=== PATIENT | male | born 1960 | race Caucasian/White ===

== ENCOUNTER → 2017-03-26 | Day surgery (SDC) | payer MEDICARE ==
[~2017-03-26] MED LIST: ACET325T9 PO; IV RINGERS,LACTATED 1000ML 1,000 ML IV SCH; PANT40TA5 PO; POLY17PO29 PO; PROPOFOL 20 ML IV ONE; fentaNYL PF VIAL 100 MCG/2 ML VIAL IV PRN
[2017-03-26 16:52] VITALS: BP 136/79
--- NOTE | 2017-03-28 11:02 | PATHOLOGY ---
PATHOLOGY REPORT * * * * * * * * FINAL DIAGNOSIS: A. Colon biopsies, hepatic flexure polyp: - Tubular adenoma. B. Colon biopsies, cecal polyp: - Tubular adenoma. C. Colorectal biopsies, rectal polyp: - Hyperplastic polyp. COMMENT: There is no high grade dysplasia or evidence of malignancy. (JPM:mml; 03/28/2017) REPORT ELECTRONICALLY SIGNED BY: Josh Aguirre M.D. DATE/TIME: 03/28/2017 11:02 * * * * * * * * GROSS PATHOLOGY: A. Received in formalin labeled "Moises Aranda, hepatic flexure polyp," are three segments of lezama soft tissue measuring from 0.1 up to 0.3 cm in maximum dimension. The specimen is submitted entirely in cassette A1. B. Received in formalin labeled "cecal polyp," are three segments of lezama soft tissue measuring 0.1, 0.1 and 0.2 cm in maximum dimension. The specimen is submitted entirely in cassette B1. C. Received in formalin labeled "rectal polyp," are two segments of lezama soft tissue measuring 0.2 and 0.4 cm in maximum dimension. The specimen is submitted entirely in cassette C1. (JPM; 03/27/17) INITIAL CPT CODE(S): A; 52119 B; 52609 C; 99614 Professional services performed by [facility] [place] [address] Technical services performed by [facility] at [address] [place] [address] [address], [place] [address]. SPECIMEN(S) RECEIVED: A.Hepatic flexure polyp B.Cecal polyp C.Rectal polyp CLINICAL HISTORY: Constipation, epigastric pain PATIENT: MOISES ARANDA Corin /AGE: 803/11/1960 (Age: 57) PATIENT #: [id number] ALT CASE #: SPECIMEN COLLECTION DATE: 03/26/2017 SPECIMEN RECEIVED DATE: 03/27/2017 [facility] - [address] [place] [address] - PHONE: [phone] * * * END OF REPORT * * *
== END | disposition home or self-care (01) ==
LOC: SURG 14:55
PROVIDERS: ATTEND Internal Medicine Gastroenterology
DX: D12.0 Benign neoplasm of cecum (principal); D12.3 Benign neoplasm of transverse colon; K64.1 Second degree hemorrhoids; K57.30 Diverticulosis of large intestine without perforation or abscess without bleeding; K29.50 Unspecified chronic gastritis without bleeding; F17.200 Nicotine dependence, unspecified, uncomplicated
CPT/HCPCS: 43235; 45380; J2704

== ENCOUNTER → 2017-03-29 | Outpatient (CLI) | payer MEDICARE ==
[2017-03-26 16:52] VITALS: BP 136/79
[~2017-03-29] MED LIST changes: +IOHEXOL 240 MG/ML 50ML VIAL. PO ONE; +IOHEXOL 300 MG/ML 75 ML VIAL IV ONE; -IV RINGERS,LACTATED 1000ML 1,000 ML IV SCH; -PROPOFOL 20 ML IV ONE; -fentaNYL PF VIAL 100 MCG/2 ML VIAL IV PRN
--- NOTE | 2017-03-29 10:35 | RAD ---
Exam performed: CT scan of the abdomen and pelvis with contrast Clinical Indication:Epigastric abdominal pain for one year Date of Service:03/29/17 comparison: CT abdomen pelvis from 01/13/13 Technique: Contiguous helical acquisitions are obtained from the lung bases to the pelvis during intravenous administration of [75 cc of Omnipaque 300]. In addition oral contrast was also given. Sagittal and coronal reformatted images were obtained and reviewed. CT abdomen findings: The lung bases appear essentially clear. The visualized heart is normal. Diffuse hepatic steatosis without focal lesions. The spleen and pancreas appears unremarkable. Probable cholelithiasis. Both adrenal glands and bilateral kidneys appear normal with symmetric excretion of contrast via both kidneys. Left renal cysts. The small bowel loops appear nondilated and unremarkable. Atheromatous aortic calcification. There is no retroperitoneal lymphadenopathy or mass lesions. No bowel related inflammatory stranding is noted. Appendix is normal. No obvious stranding is seen in the pericecal region. CT pelvis findings: The pelvic bowel loops are nondilated and unremarkable. Sigmoid diverticulosis without acute diverticulitis The urinary bladder is well distended and normal . Interrogation of bone windows demonstrates no obvious bony abnormality. Sagittal and coronal reformatted images were obtained and reviewed which demonstrate no additional findings. Impression abdomen and pelvis : 1. No acute intra-abdominal or pelvic process is detected. 2. Probable cholelithiasis. Evaluation with right upper quadrant ultrasound may be obtained. 3. Sigmoid diverticulosis without acute diverticulitis PQRS Compliance Statement: One or more of the following individualized dose reduction techniques were utilized for this examination: 1. Automated exposure control 2. Adjustment of the mA and/or kV according to patient size 3. Use of iterative reconstruction technique
== END | disposition home or self-care (01) ==
LOC: CT 08:05
PROVIDERS: ATTEND Internal Medicine Gastroenterology
DX: K57.30 Diverticulosis of large intestine without perforation or abscess without bleeding (principal)
CPT/HCPCS: 74177; Q9966; Q9967

== ENCOUNTER → 2017-04-11 | Outpatient (CLI) | payer MEDICARE ==
[2017-03-26 16:52] VITALS: BP 136/79
[~2017-04-11] MED LIST changes: -IOHEXOL 240 MG/ML 50ML VIAL. PO ONE; -IOHEXOL 300 MG/ML 75 ML VIAL IV ONE
--- NOTE | 2017-04-11 08:17 | RAD ---
Indication epigastric pain. Grayscale images were obtained. The examination was targeted to the right upper quadrant. Note is made of a CT examination of the abdomen and pelvis 03/29/2017. There is increased attenuation of the ultrasound beam by the liver compatible with fatty infiltration. A focal mass lesion is not seen in the visualized liver. The pancreas is poorly visualized and largely obscured. That portion of the abdominal aorta and inferior vena cava which are seen appears normal. The right kidney appears unremarkable. The gallbladder is partially contracted. There is cholelithiasis. The common bile duct diameter of approximately 5 mm is normal. IMPRESSION: Cholelithiasis. Fatty infiltration of the left
== END | disposition home or self-care (01) ==
LOC: US 07:05
PROVIDERS: ATTEND Internal Medicine Gastroenterology
DX: K80.20 Calculus of gallbladder without cholecystitis without obstruction (principal); K76.0 Fatty (change of) liver, not elsewhere classified
CPT/HCPCS: 76705

== ENCOUNTER → 2017-04-29 | Day surgery (SDC) | payer MEDICARE ==
[~2017-04-29] VITALS: Ht 15.2 cm; Wt 78.9 kg
[~2017-04-29] MED LIST changes: +ACET500T33 PO; +BUPIVACAINE-EPI 0.5%-1:200000 50 ML VIAL. ONE; +DESFLURANE 31 TO 60 MINUTES IH ONE; +DEXAMETHASONE SOD PHOS 20 MG/5 ML VIAL. ONE; +GLYCOPYRROLATE 1 MG/5 ML VIAL. ONE; +HYDROmorphone 2 MG/ML VIAL IV PRN; +IOHEXOL 300 MG/ML 50 ML VIAL. ONE; +LIDOCAINE 1% PF 2 ML VIAL. ID PRN; +LIDOCAINE 2% PF Vial for OR 5 ML VIAL. ONE; +MORPHINE SULFATE 4 MG/ML DISP.SYRIN. ONE; +NEOSTIGMINE 10 MG/10 ML VIAL. ONE; +ONDANSETRON PF 4 MG/2 ML VIAL. IV PRN; +ONDANSETRON PF 4 MG/2 ML VIAL. ONE; +OXYC-323 PO; +PROPOFOL 20 ML IV ONE; +ROCURONIUM 100 MG/10 ML VIAL. ONE; +SUCCINYLCHOLINE 200 MG/10 ML VIAL. ONE; +SURGICEL HEMOSTAT 4X8 EACH. ONE; +fentaNYL PF VIAL 100 MCG/2 ML VIAL IV PRN; +fentaNYL PF VIAL 100 MCG/2 ML VIAL ONE; +oxyCODONE/APAP 5/325 1 TAB TABLET PO ONE
[2017-04-29] MEDS: IV RINGERS,LACTATED 1000ML 1,000 ML IV SCH ×2 (10:03→13:01)
--- NOTE | 2017-04-29 11:16 | RAD ---
Intraoperative cholangiogram, 04/29/2017: History: Cholecystectomy 5 spot films from surgery are presented for review. Contrast has been injected into the cystic duct remnant. 0.9 minutes of fluoroscopy time was utilized. There is good flow of contrast into the duodenum at the ampulla. The common bile duct is at the upper limits of normal in size. No filling defect is seen within that duct to suggest a retained calculus. There is contrast extravasation in the araceli hepatis/gallbladder fossa region which may be on a technical basis related to the catheter insertion site in the cystic duct. A biliary leak cannot be excluded. The incompletely opacified intrahepatic ducts are unremarkable. IMPRESSION: 1. No retained biliary tract calculus is identified. 2. Mild contrast extravasation as described above
[2017-04-29] MEDS: PROCHLORPERAZINE 10 MG/2 ML VIAL. IV PRN ×2 (12:10→12:59)
[2017-04-29] MEDS: MORPHINE SULFATE 2 MG/ML DISP.SYRIN. IV PRN ×4 (12:10→13:13)
--- NOTE | 2017-04-29 12:14 | PDOC4 ---
Operative Note Operative Note Operative Note: Preoperative Diagnosis: Calculous cholecystitis Postoperative Diagnosis: Same Procedure: Laparoscopic cholecystectomy with intraoperative cholangiogram Surgeons: Mark Anesthesia: Gen. Estimated Blood Loss: 100 mL Specimen: Gallbladder to pathology Drains: None Complications: None Indications: The patient is a 57 year old male who is been experiencing recurrent upper abdominal pain consistent with biliary colic. His evaluation identified gallstones. Surgical treatment was offered by means of a laparoscopic cholecystectomy. The risks of surgery were discussed which include bleeding, infection, bile duct injury, bile leak, pain, the potential for additional surgeries or procedures. The patient understands and would like to proceed. Description: The patient was taken to the operating room and laid supine on the operating table. General anesthesia was performed. The abdomen was prepped with ChloraPrep and draped in a standard surgical fashion. A small supraumbilical incision was made with a scalpel. The Veress needle was then inserted and a pneumoperitoneum was then created. A 5 mm trocar was then inserted and the laparoscope was introduced. In the upper midabdomen a 5 mm trocar was inserted and in the right upper quadrant two 5 mm trocars were inserted. The gallbladder was essentially obscured by omentum in the right upper quadrant. We began freeing the omentum off which identified a markedly thickened and chronically fibrosed gallbladder. The gallbladder was retracted cephalad. The cystic duct was dissected free from surrounding tissues. This was somewhat difficult due to the marked surrounding fibrotic reaction. One clip was placed on the duct near the gallbladder junction. An opening was made in the duct and a cholangiocatheter placed within and secured with a clip. Using contrast dye and fluoroscopy an intraoperative cholangiogram was performed. There was no evidence of any common duct filling defects and contrast readily passed into the duodenum. The clip and catheter were then withdrawn. Three clips were placed on the cystic duct and it was divided. The cystic artery was then identified, dissected free, doubly clipped and divided as well. The gallbladder was then mobilized away from the liver with cautery. This proved to be particularly difficult due to the fibrotic reaction. Eventually the gallbladder was fully freed and placed in an endoscopic bag. The superior abdominal 5 millimeter trocar was exchanged for an 11 millimeter trocar. A Surgicel pack was placed on the gallbladder fossa to assist with hemostasis. The gallbladder was then placed in an endoscopic bag and extracted at the superior trocar site. The fascia there was closed with interrupted 0 PDS sutures. All blood and irrigation fluid was suctioned and hemostasis was good. The remaining ports were removed and the pneumoperitoneum was relieved. The skin incisions were injected with half percent Marcaine with epinephrine, and all were closed using 4-0 Monocryl suture. Steri-Strips and dressings were then applied. The patient tolerated the procedure well and was sent to the recovery room in stable condition. At the end of the case all counts were correct. SHAYNE HAMMOND MD Apr 29, 2017 12:14
--- NOTE | 2017-04-29 12:16 | DISCH ---
DISCHARGE INSTRUCTIONS Condition on Discharge Condition on Discharge: Stable Activity After Discharge Activity Instructions for Disc: Other, see below (no lifting over 20 lbs X 2 weeks) Diet after Discharge Diet after Discharge: Regular Wound Incision Care Wound/Incision Care: Other, see below (may remove dressings tomorrow and shower , steristrips fall off on their own) Follow-Up Follow up with: Dr Hammond in 2 weeks, call for appt [phone] SHAYNE HAMMOND MD Apr 29, 2017 12:16
[2017-04-29] MEDS: fentaNYL PF VIAL 100 MCG/2 ML VIAL IV PRN ×2 (12:26→12:36)
[2017-04-29 13:45] VITALS: BP 112/81
--- NOTE | 2017-04-30 13:11 | PATHOLOGY ---
PATHOLOGY REPORT * * * * * * * * FINAL DIAGNOSIS: Gallbladder, cholecystectomy: - Chronic cholecystitis. - Cholelithiasis. (SKM:apple; 04/30/2017) REPORT ELECTRONICALLY SIGNED BY: Denise Heaton M.D. DATE/TIME: 04/30/2017 13:10 * * * * * * * * GROSS PATHOLOGY: Received in formalin labeled "Moises Aranda, gallbladder and contents," is a 6.5 x 3.1 x 2.9 cm, intact gallbladder with dark pink, wrinkled serosal surfaces. Opening the gallbladder reveals dark pink, grainy mucosa and an average wall thickness of 0.2 cm. Calculi are present, measuring 2.0-2.2 cm in maximum dimension, displaying a dark lezama and granular appearance, and feeling firm to the touch. No masses are noted grossly. Special Procedures Tech sections from the body and fundus are submitted along with the proximal margin in cassette A1. (TSD; 04/29/2017) INITIAL CPT CODE(S): A; 43309 Professional services performed by [facility] [place] [address] Technical services performed by [facility] at [address] [place] [address]. SPECIMEN(S) RECEIVED: A.Gallbladder and its contents CLINICAL HISTORY: Symptomatic cholelithiasis PATIENT: MOISES ARANDA /AGE: 803/11/1960 (Age: 57) PATIENT #: [id number] ALT CASE #: SPECIMEN COLLECTION DATE: 04/29/2017 SPECIMEN RECEIVED DATE: 04/29/2017 [facility] - [facility] [place] [address] - PHONE: [phone] * * * END OF REPORT * * *
== END | disposition home or self-care (01) ==
LOC: SURG 09:13
PROVIDERS: ATTEND Surgery
DX: K80.10 Calculus of gallbladder with chronic cholecystitis without obstruction (principal); E66.9 Obesity, unspecified; Z68.33 Body mass index [BMI] 33.0-33.9, adult; F17.200 Nicotine dependence, unspecified, uncomplicated
CPT/HCPCS: 47563; 74300; C1769; J0330; J0690; J0780; J1100; J2270; J2405; J2704; J2710; J3010; J3490; J7030; Q9967; J2001